=== PATIENT | female | born 1990 | race Caucasian/White ===

== ENCOUNTER 2022-07-28 14:30 | Inpatient (IN) | payer OTHER ==
[2022-07-28 15:44] VITALS: BMI 33.6
[2022-07-28 18:13] LABS: HEMATOCRIT 34.8 % (32.4-45.2); HEMOGLOBIN 11.7 GM/dL (10.7-15.3); MCH 31.7 pg (25.7-33.7); MCHC 33.5 g/dl (32.0-36.0); MEAN CELL VOLUME 94.6 fl (80-96); MEAN PLT VOLUME 8.1 fl (7.5-11.1); PLATELET COUNT 258 10^3/uL (134-434); RBC 3.68 M/mm3 (3.60-5.2); RDW 13.7 % (11.6-15.6); WHITE BLOOD COUNT 10.9 K/mm3 (4.0-10.0)
[2022-07-28 18:23] LABS: BLOOD UREA NITROGEN 8.3 mg/dL (7-18); CALCIUM 9.2 mg/dL (8.5-10.1)
[2022-07-28 18:27] LABS: CREATININE 0.4 mg/dL (0.55-1.3)
[2022-07-28 19:26] LABS: INR 0.97 (0.83-1.09); PROTHROMBIN TIME (PATIENT) 11.2 SEC (9.7-13.0)
[2022-07-28 19:28] LABS: ACTIVATED PTT 32.7 SECONDS (25.2-36.5)
[2022-07-28] MEDS ORDERED: FENTANYL CITRATE/PF 50 MCG/ML VIAL ONE (20:39)
[2022-07-28] MEDS ORDERED: morphine SULFATE (PF) 1 MG/2 ML SYRINGE ONE (20:39)
[2022-07-28] MEDS ORDERED: CITRIC ACID/SODIUM CITRATE 30 ML UNIT-DOSE CUP PO ONE (21:00)
[2022-07-28] MEDS ORDERED: ELECTROLYTE-148 SOLN 1,000 ML IV SCH (21:00)
[2022-07-28] MEDS ORDERED: PROPOFOL 20 ML ONE ×2 (21:15)
[2022-07-28] MEDS: ELECTROLYTE-148 SOLN 1,000 ML IV SCH (22:05)
[2022-07-28] MEDS ORDERED: MIDAZOLAM HCL 2 MG/2 ML SINGLE DOSE VIAL ONE (22:30)
[2022-07-28 22:56] LABS: CORD BASE EXCESS -2.3 mmol/L (0-2); CORD HCO3 21.9 mmHg (20-29); CORD HCO3 22.8 mmHg (20-29); CORD PCO2 35.6 mmHg (30-78); CORD PCO2 44.8 mmHg (30-78); CORD pH 7.324 (7.14-7.44); CORD pH 7.406 (7.14-7.44)
[2022-07-28] MEDS: OXYTOCIN 20 UNITS in 0.9% NS 20 UNIT/1,000 ML INFUS.BAG IV SCH (23:30)
[2022-07-29] MEDS ORDERED: ACETAMINOPHEN 325 MG TABLET (FP) PO PRN (00:11)
[2022-07-29] MEDS: OXYTOCIN 20 UNITS in 0.9% NS 20 UNIT/1,000 ML INFUS.BAG IV SCH (09:22)
[2022-07-29] MEDS ORDERED: oxyCODONE HCL 5 MG TABLET PO PRN (12:12)
[2022-07-29] MEDS: IBUPROFEN 600 MG TABLET (FP) PO PRN (17:24)
[2022-07-29] MEDS: SIMETHICONE 80 MG TAB.CHEW (FP) PO PRN (17:25)
[2022-07-29] MEDS: ELECTROLYTE-148 SOLN 1,000 ML IV SCH (22:50)
[2022-07-30] MEDS: SIMETHICONE 80 MG TAB.CHEW (FP) PO PRN ×4 (03:23→19:19)
[2022-07-30] MEDS: IBUPROFEN 600 MG TABLET (FP) PO PRN ×4 (03:23→19:20)
[2022-07-30 08:32] LABS: BASO % 0.3 % (0-2.0); EOS % 0.3 % (0-4.5); HEMATOCRIT 29.9 % (32.4-45.2); HEMOGLOBIN 10.2 GM/dL (10.7-15.3); LYMPH % 12.4 % (8-40); MCH 32.4 pg (25.7-33.7); MCHC 34.1 g/dl (32.0-36.0); MONO % 6.5 % (3.8-10.2); NEUT % 80.5 % (42.8-82.8); PLATELET COUNT 266 10^3/uL (134-434); RBC 3.15 M/mm3 (3.60-5.2); RDW 14.1 % (11.6-15.6); WHITE BLOOD COUNT 10.8 K/mm3 (4.0-10.0)
[2022-07-31] MEDS: SIMETHICONE 80 MG TAB.CHEW (FP) PO PRN ×2 (03:31→08:32)
[2022-07-31] MEDS: IBUPROFEN 600 MG TABLET (FP) PO PRN ×2 (03:31→08:32)
[2022-07-31 09:08] VITALS: BP 111/54; PULSE 90; RESP 16; TEMP 98.7
== END 2022-07-31 12:55 | disposition home or self-care (01) | DRG 787 ==
LOC: JLDR 14:30 → J3W 07-29 00:55
PROVIDERS: ADMIT Obstetrics & Gynecology Maternal & Fetal Medicine; ATTEND Obstetrics & Gynecology Maternal & Fetal Medicine
PROC: 10D00Z1 Extraction of Products of Conception, Low, Open Approach (ICD-10-PCS; principal; 2022-07-28)
DX: O41.03X0 Oligohydramnios, third trimester, not applicable or unspecified (principal); D68.61 Antiphospholipid syndrome; O99.119 Other diseases of the blood and blood-forming organs and certain disorders involving the immune mechanism complicating pregnancy, unspecified trimester; K66.0 Peritoneal adhesions (postprocedural) (postinfection); O99.62 Diseases of the digestive system complicating childbirth; Z79.01 Long term (current) use of anticoagulants; Z87.59 Personal history of other complications of pregnancy, childbirth and the puerperium; Z3A.37 37 weeks gestation of pregnancy; Z37.0 Single live birth
CPT/HCPCS: 36415; 36600; 80048; 82803; 85025; 85610; 85730; 86780; 86850; 86870; 86900; 86901; 86902; 88307-TC; C9803-CS; U0003; U0005

== ENCOUNTER 2023-12-05 14:15 | Inpatient (IN) | payer OTHER ==
[2023-12-05 15:41] LABS: BASO % 0.3 % (0-2.0); EOS % 1.2 % (0-4.5); HEMATOCRIT 34.5 % (32.4-45.2); HEMOGLOBIN 11.7 GM/dL (10.7-15.3); LYMPH % 15.1 % (8-40); MCH 32.9 pg (25.7-33.7); MCHC 33.9 g/dl (32.0-36.0); MEAN CELL VOLUME 97.2 fl (80-96); MEAN PLT VOLUME 8.4 fl (7.5-11.1); MONO % 6.7 % (3.8-10.2); NEUT % 76.7 % (42.8-82.8); PLATELET COUNT 225 10^3/uL (134-434); RBC 3.55 M/mm3 (3.60-5.2); RDW 13.9 % (11.6-15.6); WHITE BLOOD COUNT 8.8 K/mm3 (4.0-10.0)
[2023-12-05 15:45] LABS: INR 0.89 (0.83-1.09); PROTHROMBIN TIME (PATIENT) 10.3 SEC (9.7-13.0)
[2023-12-05 15:48] LABS: ACTIVATED PTT 34.9 SECONDS (25.2-36.5)
[2023-12-05 16:16] LABS: ANISOCYTOSIS 0; MACROCYTOSIS 0; POTASSIUM 3.9 mmol/L (3.5-5.1)
[2023-12-05 16:19] LABS: ALBUMIN 2.8 g/dl (3.4-5.0); BLOOD UREA NITROGEN 7.6 mg/dL (7-18); CALCIUM 8.9 mg/dL (8.5-10.1)
[2023-12-05 16:23] LABS: CREATININE 0.4 mg/dL (0.55-1.3)
[2023-12-05 16:24] LABS: BILIRUBIN,TOTAL 0.4 mg/dL (0.2-1)
[2023-12-05 17:09] LABS: HIV INTERPRETATION NEGATIVE (NEGATIVE)
[2023-12-05 17:39] VITALS: BMI 35.4
[2023-12-05] MEDS ORDERED: ONDANSETRON 4 MG/2 ML VIAL IVPUSH PRN (19:09)
[2023-12-05] MEDS: SODIUM CHLORIDE 500 ML IV STA (19:55)
[2023-12-05] MEDS ORDERED: OXYTOCIN 30 UNITS in 0.9% NS 30 UNIT/500 ML INFUS.BAG IVPB ONE (20:03)
[2023-12-05] MEDS: CITRIC ACID/SODIUM CITRATE 30 ML UNIT-DOSE CUP PO ONE (20:05)
[2023-12-05] MEDS ORDERED: FENTANYL CITRATE/PF 50 MCG/ML VIAL ONE ×2 (20:09→21:40)
[2023-12-05] MEDS ORDERED: BUPIVACAINE 0.75% IN DEXTROSE/PF 2ML AMPULE NR ONE (20:09)
[2023-12-05] MEDS ORDERED: ONDANSETRON 4 MG/2 ML VIAL ONE ×2 (20:09)
[2023-12-05] MEDS ORDERED: morphine SULFATE/PF 1 MG/2 ML (2cc Syringe - QUVA) ONE (20:09)
[2023-12-05 22:14] LABS: CORD BASE EXCESS -3.8 mmol/L (0-2); CORD HCO3 23.3 mmHg (20-29); CORD PCO2 50.1 mmHg (30-78); CORD pH 7.286 (7.14-7.44)
[2023-12-05 22:21] LABS: CORD HCO3 24.6 mmHg (20-29); CORD PCO2 64.8 mmHg (30-78); CORD pH 7.197 (7.14-7.44)
[2023-12-06] MEDS: ACETAMINOPHEN 1000 MG/100 ML BAG IVPB PRN (03:25)
[2023-12-06] MEDS: METHYLERGONOVINE MALEATE 0.2 MG/1 ML AMP IM ONE (03:25)
[2023-12-06] MEDS: OXYTOCIN 20 UNITS in 0.9% NS 20 UNIT/1,000 ML INFUS.BAG IV SCH ×2 (04:10→19:51)
[2023-12-06 08:10] LABS: BASO % 0.1 % (0-2.0); HEMATOCRIT 21.6 % (32.4-45.2); HEMOGLOBIN 7.4 GM/dL (10.7-15.3); LYMPH % 9.4 % (8-40); MCHC 34.3 g/dl (32.0-36.0); MEAN CELL VOLUME 96.2 fl (80-96); MEAN PLT VOLUME 8.4 fl (7.5-11.1); NEUT % 85.5 % (42.8-82.8); PLATELET COUNT 197 10^3/uL (134-434); RBC 2.25 M/mm3 (3.60-5.2); RDW 14.1 % (11.6-15.6); WHITE BLOOD COUNT 13.5 K/mm3 (4.0-10.0)
[2023-12-06] MEDS ORDERED: oxyCODONE HCL 5 MG TABLET PO PRN (10:50)
[2023-12-06] MEDS: IBUPROFEN 600 MG TABLET (FP) PO PRN (10:58)
[2023-12-06] MEDS: IRON SUCROSE INJECTION 300 MG in SODIUM CHLORIDE 235 ML IVPB ONE (12:23)
[2023-12-06 19:23] VITALS: RESP 18
[2023-12-06] MEDS: DEXTROSE 5%-LACTATED RINGERS 1,000 ML IV SCH (19:52)
[2023-12-06] MEDS: DOCUSATE SODIUM 100 MG CAPSULE (FP) PO PRN (21:25)
[2023-12-06] MEDS: FERROUS SO4 325 MG TABLET (FP) PO SCH (21:25)
[2023-12-07] MEDS: ACETAMINOPHEN 325 MG TABLET (FP) PO PRN (11:41)
[2023-12-08 02:01] VITALS: TEMP 98.6
[2023-12-08 08:04] VITALS: BP 105/64; PULSE 106
[2023-12-08 08:04] LABS: HEMATOCRIT 19.3 % (32.4-45.2); MCH 33.8 pg (25.7-33.7); MCHC 34.1 g/dl (32.0-36.0); MEAN CELL VOLUME 98.9 fl (80-96); MEAN PLT VOLUME 7.8 fl (7.5-11.1); PLATELET COUNT 200 10^3/uL (134-434); RBC 1.95 M/mm3 (3.60-5.2); RDW 14.4 % (11.6-15.6); WHITE BLOOD COUNT 8.1 K/mm3 (4.0-10.0)
[2023-12-08 08:11] LABS: HEMOGLOBIN 6.6 GM/dL (10.7-15.3)
[2023-12-08 09:12] LABS: PLATELET ESTIMATE ADEQUATE
== END 2023-12-08 13:30 | disposition home or self-care (01) | DRG 787 ==
LOC: JLDR 14:15 → J3W 12-06 00:56
PROVIDERS: ADMIT Obstetrics & Gynecology Maternal & Fetal Medicine; ATTEND Obstetrics & Gynecology Maternal & Fetal Medicine
PROC: 10D00Z1 Extraction of Products of Conception, Low, Open Approach (ICD-10-PCS; principal; 2023-12-05)
DX: O41.03X0 Oligohydramnios, third trimester, not applicable or unspecified (principal); D68.61 Antiphospholipid syndrome; O99.12 Other diseases of the blood and blood-forming organs and certain disorders involving the immune mechanism complicating childbirth; O72.2 Delayed and secondary postpartum hemorrhage; O99.03 Anemia complicating the puerperium; D50.0 Iron deficiency anemia secondary to blood loss (chronic); Z3A.37 37 weeks gestation of pregnancy; Z37.0 Single live birth; Z87.59 Personal history of other complications of pregnancy, childbirth and the puerperium
CPT/HCPCS: 36415; 36600; 80053; 82803; 85025; 85610; 85730; 86780; 86803; 86850; 86870; 86880; 86900; 86901; 86902; 86922; 87389; 88307-TC; J0131; J1756